=== PATIENT | female | born 1990 | race Caucasian/White ===

== ENCOUNTER 2018-07-29 23:55 | Outpatient (CLI) | payer OTHER, MEDICAID ==
[2018-07-30 00:56] LABS: ADD UMIC YES; UR AMORPHOUS CRYSTAL MODERATE /HPF (NONE SEEN); UR ASCORBIC ACID NEGATIVE (NEGATIVE); UR BILIRUBIN (Dip) NEGATIVE (NEGATIVE); UR BLOOD (Dip) NEGATIVE (NEGATIVE); UR CLARITY CLOUDY (CLEAR); UR COLOR YELLOW (YELLOW); UR GLUCOSE (Dip) NEGATIVE (NEGATIVE); UR KETONES (Dip) NEGATIVE (NEGATIVE); UR LEUKOCYTE ESTERASE (Dip) TRACE Leu/ul (NEGATIVE); UR NITRITE (Dip) NEGATIVE (NEGATIVE); UR RBC 1 /HPF (0-5); UR SPECIFIC GRAVITY (Dip) 1.017 (1.003-1.030); UR SQUAMOUS EPITHELIAL CELL FEW /HPF (FEW); UR TOTAL PROTEIN (Dip) NEGATIVE (NEGATIVE); UR UROBILINOGEN (Dip) NEGATIVE (NEGATIVE); UR WBC 18 /HPF (0-5)
[2018-07-30] MEDS ORDERED: LACTATED RINGER'S 1,000 ML IV (01:00)
[2018-07-30 01:12] LABS: ADD MAN DIFF? NO
[2018-07-30 01:20] LABS: BASOPHILS % 0.3 % (0.0-2.0); EOSINOPHILS # 0.1 10^3/ul (0.0-0.5); EOSINOPHILS % 1.1 % (0.0-7.0); HEMATOCRIT 29.1 % (37.0-47.0); HEMOGLOBIN 9.5 g/dl (12.0-16.0); LYMPHOCYTES # 2.6 10^3/ul (0.8-2.9); LYMPHOCYTES % 28.5 % (15.0-51.0); MEAN CORPUSCULAR HEMOGLOBIN 27.6 pg (29.0-33.0); MEAN CORPUSCULAR HGB CONC 32.6 g/dl (32.0-37.0); MEAN CORPUSCULAR VOLUME 84.6 fl (82.0-101.0); MEAN PLATELET VOLUME 12.6 fl (7.4-10.4); MONOCYTE # 0.8 10^3/ul (0.3-0.9); MONOCYTES % 8.6 % (0.0-11.0); NEUTROPHIL # 5.5 10^3/ul (1.6-7.5); NEUTROPHILS % 61.1 % (39.0-77.0); PLATELET COUNT 146 10^3/UL (140-415); RED BLOOD COUNT 3.44 10^6/ul (4.20-5.40); RED CELL DISTRIBUTION WIDTH 13.4 % (11.5-14.5)
[2018-07-30] MEDS: LACTATED RINGER'S 1,000 ML IV (01:40)
[2018-07-30] MEDS: TERBUTALINE 1 MG/ML INJ SC (02:00)
[2018-07-30 02:51] LABS: AMPHETAMINE/METHAMPHETAMINE Negative (NEGATIVE); BARBITURATES Negative (NEGATIVE); BENZODIAZEPINES Negative (NEGATIVE); CANNABINOIDS Negative (NEGATIVE); COCAINE Negative (NEGATIVE); OPIATES Negative (NEGATIVE)
== END 2018-07-30 03:38 | disposition home or self-care (01) ==
LOC: OBT 23:55 → L-D 23:58
DX: O36.8130 Decreased fetal movements, third trimester, not applicable or unspecified (principal); Z3A.28 28 weeks gestation of pregnancy
CPT/HCPCS: 36415; 76815; 76817; 76818; 80307; 81001; 85025; 96360; 96361

== ENCOUNTER 2018-08-17 22:55 | Inpatient (IN) | payer OTHER ==
[2018-08-18] MEDS ORDERED: MAGNESIUM SULFATE 4 GM/100 ML 100 ML (00:10)
[2018-08-18] MEDS: LACTATED RINGER'S 1,000 ML IV (00:16)
[2018-08-18] MEDS ORDERED: MAGNESIUM SULFATE 20 GM/500 ML 500 ML IV (00:18)
[2018-08-18] MEDS: MAGNESIUM SULFATE 4 GM/100 ML 100 ML IV (00:19)
[2018-08-18 00:30] LABS: ADD MAN DIFF? NO
[2018-08-18 00:36] LABS: WHITE BLOOD COUNT 9.2 10^3/ul (4.8-10.8)
[2018-08-18 00:36] LABS: ABNORMAL IP MESSAGE 1; BASOPHILS % 0.2 % (0.0-2.0); EOSINOPHILS # 0.1 10^3/ul (0.0-0.5); HEMATOCRIT 36.6 % (37.0-47.0); HEMOGLOBIN 12.1 g/dl (12.0-16.0); LYMPHOCYTES # 1.8 10^3/ul (0.8-2.9); MEAN CORPUSCULAR HEMOGLOBIN 27.6 pg (29.0-33.0); MEAN CORPUSCULAR HGB CONC 33.1 g/dl (32.0-37.0); MEAN CORPUSCULAR VOLUME 83.6 fl (82.0-101.0); MEAN PLATELET VOLUME 13.1 fl (7.4-10.4); MONOCYTE # 0.9 10^3/ul (0.3-0.9); MONOCYTES % 10.1 % (0.0-11.0); NEUTROPHIL # 6.3 10^3/ul (1.6-7.5); NEUTROPHILS % 68.4 % (39.0-77.0); PLATELET COUNT 148 10^3/UL (140-415); RED BLOOD COUNT 4.38 10^6/ul (4.20-5.40)
[2018-08-18] MEDS: BETAMET NA PHOS/AC(6 MG/ML) 2 ML INJ SYG IM (00:36)
[2018-08-18 00:38] LABS: POSITIVE DIFF @See below
[2018-08-18] MEDS: MAGNESIUM SULFATE 20 GM/500 ML 500 ML IV (00:43)
[2018-08-18 00:48] LABS: ADD UMIC YES; UR ASCORBIC ACID NEGATIVE (NEGATIVE); UR BILIRUBIN (Dip) NEGATIVE (NEGATIVE); UR BLOOD (Dip) NEGATIVE (NEGATIVE); UR CLARITY SLIGHTLY CLOUDY (CLEAR); UR COLOR YELLOW (YELLOW); UR GLUCOSE (Dip) NEGATIVE (NEGATIVE); UR KETONES (Dip) NEGATIVE (NEGATIVE); UR LEUKOCYTE ESTERASE (Dip) TRACE Leu/ul (NEGATIVE); UR MUCUS FEW /HPF (NONE SEEN); UR NITRITE (Dip) NEGATIVE (NEGATIVE); UR RBC 1 /HPF (0-5); UR SPECIFIC GRAVITY (Dip) 1.017 (1.003-1.030); UR SQUAMOUS EPITHELIAL CELL FEW /HPF (FEW); UR TOTAL PROTEIN (Dip) NEGATIVE (NEGATIVE); UR UROBILINOGEN (Dip) NEGATIVE (NEGATIVE); UR WBC 7 /HPF (0-5)
[2018-08-18 00:55] LABS: INR 0.91; PROTIME 12.3 Sec (11.9-14.9)
[2018-08-18] MEDS ORDERED: AMPICILLIN 2 GM/NS (PMX) 100 ML (00:55)
[2018-08-18] MEDS: AMPICILLIN 2 GM/NS (PMX) 100 ML IVPB (01:00)
[2018-08-18] MEDS ORDERED: OXYTOCIN 30 UNITS/LR 500 ML IV ×3 (01:25→05:00)
[2018-08-18] MEDS ORDERED: LIDOCAINE 1% (MPF) 30 ML INJ (01:26)
[2018-08-18] MEDS ORDERED: LIDOCAINE 1% (MPF) 30 ML INJ INJ (01:30)
[2018-08-18] MEDS ORDERED: METHYLERGONOVINE 0.2 MG INJ IM ×2 (01:30→05:00)
[2018-08-18] MEDS ORDERED: CARBOPROST 250 MCG INJ IM ×2 (01:30→05:00)
[2018-08-18] MEDS ORDERED: MISOPROSTOL 200 MCG TAB PR ×2 (01:30→05:00)
[2018-08-18 01:46] LABS: AMPHETAMINE/METHAMPHETAMINE Negative (NEGATIVE); BARBITURATES Negative (NEGATIVE); BENZODIAZEPINES Negative (NEGATIVE); CANNABINOIDS Negative (NEGATIVE); COCAINE Negative (NEGATIVE); OPIATES Negative (NEGATIVE)
[2018-08-18] MEDS: OXYTOCIN 30 UNITS/LR 500 ML IV ×3 (02:32→04:53)
[2018-08-18] MEDS ORDERED: IBUPROFEN 600 MG TAB (03:04)
[2018-08-18] MEDS: IBUPROFEN 600 MG TAB PO ×3 (03:10→12:21)
[2018-08-18 03:34] LABS: AADO2 Cord Arterial 641.9 mmHg; Arterial Cord Blood pCO2 42.3 mmHG (25-50); CBA COHb 1.5 %; CBA Oxygen Sat 67.8 mmHG; CBA Total Hemglobin 14.7 g/dl; Cord Blood Arterial pO2 28.8 mmHG (15.0-45.0); Fraction OxyHgb Cord Arterial 65.9 %; MODE ROOM AIR; MetHgb Cord Arterial 1.3 %; Site CORD
[2018-08-18 03:37] LABS: CBV Base Excess -4.5 mmol/L; CBV COHb 1.8 %; CBV Oxygen Sat 76.1 mmHG; CBV Total Hemglobin 15.5 g/dl; Cord Blood Venous pO2 36.1 mmHG (15.0-45.0); MODE ROOM AIR; MetHgb Cord Venous 0.9 %; Sample Type Blood venous; Site CORD
[2018-08-18 04:58] LABS: HEPATITIS B SURFACE ANTIGEN NEGATIVE (NEGATIVE)
[2018-08-18] MEDS ORDERED: AMPICILLIN 1 GM/NS (PMX) 50 ML IVPB (05:00)
[2018-08-18] MEDS ORDERED: HYDROCODONE/APAP (5/325) TAB PO (05:00)
[2018-08-18] MEDS ORDERED: DIPHENHYDRAMINE 25 MG CAP PO (05:00)
[2018-08-18] MEDS ORDERED: ZOLPIDEM 5 MG TAB PO (05:00)
[2018-08-18] MEDS ORDERED: ACETAMINOPHEN 325 MG TAB PO (05:00)
[2018-08-18] MEDS ORDERED: ONDANSETRON 4 MG INJ IV (05:00)
[2018-08-18] MEDS ORDERED: NACL 0.9% 3 ML SYG IV (05:00)
[2018-08-18] MEDS: LANOLIN HPA 1 PKT TOP (06:46)
[2018-08-18] MEDS: WITCH HAZEL/GLYCERIN PAD PR (06:46)
[2018-08-18 08:37] LABS: HIV 1&2 ANTIBODY NEGATIVE (NEGATIVE)
[2018-08-18 08:37] LABS: HEPATITIS C VIRAL ANTIBODY NEGATIVE (NEGATIVE)
[2018-08-18] MEDS: SENNA/DOCUSATE NA (8.6MG/50MG) TAB PO (09:00)
[2018-08-18] MEDS: FERROUS SULFATE (EC) 325 MG TAB PO (09:06)
[2018-08-18 22:53] LABS: RAPID PLASMA REAGIN NONREACTIVE (NR)
[2018-08-20] MEDS ORDERED: VARICELLA VACCINE LIVE/PF 1,350 UNIT/0.5 ML ML SC* (09:00)
[2018-08-20] MEDS ORDERED: DIPHTH/TET/ACEL PERTUSS (ADULT) 0.5 ML VIAL IM* (09:00)
[2018-08-20] MEDS ORDERED: MEASLES,MUMPS,RUBELLA VACCINE INJ SC* (09:00)
== END 2018-08-18 17:36 | disposition left against medical advice (07) | DRG 807 ==
LOC: OBT 08-18 00:30 → L-D 08-18 00:30 → PP1 08-18 04:27
PROC: 10E0XZZ Delivery of Products of Conception, External Approach (ICD-10-PCS; principal; 2018-08-18)
DX: O60.14X0 Preterm labor third trimester with preterm delivery third trimester, not applicable or unspecified (principal); Z37.0 Single live birth; O40.3XX0 Polyhydramnios, third trimester, not applicable or unspecified; O36.8930 Maternal care for other specified fetal problems, third trimester, not applicable or unspecified; Z3A.31 31 weeks gestation of pregnancy
CPT/HCPCS: 36415; 36600; 76815; 76818; 80307; 81001; 82803; 85025; 85384; 85610; 85730; 86592; 86703; 86803; 86850; 86900; 86901; 87340; 87536; 88307; 99464